=== PATIENT | male | born 1985 | race Caucasian/White ===

== ENCOUNTER 2017-01-07 19:56 | Emergency (ER) | payer OTHER ==
[~2017-01-07 19:56] MED LIST: ALBUTEROL17 GM; AMOXICILLIN500 MG PO; AMOXICILLIN875 M1 PO; AMOXIL NG; AUGMENTIN875 MG PO; CIALIS5 MG PO; CITALOPRAM HBR20 MG PO; CLARITIN10 M2 PO; CLINDAMYCIN HC150 MG; COLACE100 MG PO; FLINTSTONE1 TAB.CHEW; HYDROCODON-ACE1 EA16 PO; IBUPROFEN200 M3 PO; MIRALAX17 GM PO; MULTIVITAMIN1 TAB PO; NICODERM C TD; NORCO 10-325 T1 EACH PO; NORCO 10/3251 TA1 PO; NORCO 5/325 TAB1 TAB PO; NORCO 5/3251 TAB PO; NORFLEX100 MG PO; OMNICEF300 MG; PREDNISONE10 MG PO; PROVENTIL HFA6.7 G1 INH; PROVENTIL HFA6.7 GM IH; SENOKOT-S TABLE1 TAB PO; STOOL SOFTENER1 EAC1 PO; TRIPLE ANTIBIOT15 GM TP; TYLENOL325 MG PO; TYLENOL500 MG; UNASYN IV; [UNRECOGNIZED DRUG - OTHER] PO
[2017-01-07] MEDS ORDERED: MORPHINE SU15 MG/TAB PO (20:28)
[2017-01-07] MEDS ORDERED: ZOFRAN ODT4 MG PO (20:28)
[2017-04-04] MEDS ORDERED: MOBIC15 M2 PO (23:08)
[2017-04-04] MEDS ORDERED: TYLENOL WITH C1 EACH PO (23:09)
[2017-04-05] MEDS ORDERED: NORCO 5-325 TA1 EACH PO (02:36)
== END 2017-01-07 21:16 ==
LOC: EDMED 19:56
DX: M54.12 Radiculopathy, cervical region (principal); Z91.010 Allergy to peanuts
CPT/HCPCS: J2270; J2550